=== PATIENT | female | born 1955 | race Caucasian/White ===

== ENCOUNTER 2022-01-22 20:57 | Inpatient (IN) ==
[2022-01-22] MEDS ORDERED: SODIUM CHLORIDE 0.9% 1,000 ML IV STA (21:25)
[2022-01-22] MEDS ORDERED: ONDANSETRON 4 MG/2 ML VIAL IV ONE (21:25)
[2022-01-22] MEDS ORDERED: HYDROmorphone 1 MG/1 ML SYRINGE IV STA (21:25)
[2022-01-22 21:44] LABS: Basophils # 0.1 10*3/uL (0.0-0.2); Basophils % 0.4 % (0.0-0.8); Eosinophils # 0.5 10*3/uL (0.0-0.87); Eosinophils % 2.2 % (0.00-10.9); Hematocrit 41.2 VOL% (35.7-47.0); Hemoglobin 13.7 GM/DL (12.0-16.0); Immature Granulocytes % 0.5 %; Immature Granulocytes Absolute 0.12 #; Lymphocytes # 6.3 10*3/uL (1.4-4.0); Lymphocytes % 28.1 % (21.3-54.2); Mean Corpuscular HGB Conc 33.3 GM/DL (32-36); Mean Platelet Volume 9.8 FL (9.6-12.0); Monocytes # 1.5 10*3/uL (0.11-0.8); Monocytes % 6.8 % (1.7-12.7); Platelet Count 321 T/CUMM (130-400); Red Blood Count 4.48 MC/CUMM (3.8-5.5); Red Cell Distribution Width 13.8 % (9.3-17.3); White Blood Count 22.5 T/CUMM (4-12)
[2022-01-22 21:53] LABS: INR 2.3; PT Patient Result 24.2 SECS (10.1-12.1)
[2022-01-22 22:05] LABS: Albumin 3.5 G/DL (3.4-5.0); Bilirubin,Total 0.4 MG/DL (0.20-1.00); Calcium 9.4 MG/DL (8.5-10.1); Osmolality,Calculated 282.4 MOS/KG (273-304); Potassium 3.5 MMOL/L (3.5-5.1); Total Protein 7.2 G/DL (6.4-8.2)
[2022-01-22 22:51] LABS: Eosinophils 3 % (0-10); Lymphocytes 26 % (20-55); Total Cells Counted 100
[2022-01-22 22:52] LABS: Platelet Estimate Normal; Smudge Cells Few
[2022-01-23] MEDS ORDERED: ONDANSETRON 4 MG/2 ML VIAL IV PRN (00:01)
[2022-01-23] MEDS ORDERED: PHYTONADIONE INJ 10 MG in SODIUM CHLORIDE 0.9% 50 ML IV STA (00:01)
[2022-01-23] MEDS ORDERED: MORPHINE 2 MG/1 ML SYRINGE IV PRN (00:01)
[2022-01-23] MEDS ORDERED: PIPERACILLIN/TAZOBACTAM 3,375 MG in SODIUM CHLORIDE 0.9% 100 ML IV STA (00:01)
[2022-01-23] MEDS ORDERED: ACETAMINOPHEN 325 MG TABLET PO PRN (00:01)
[2022-01-23 00:04] LABS: Bilirubin,Urine Negative (Negative); Blood, Urine Large mg/dL (Negative); Calcium Oxalate Crystals,Urine Occasional /HPF (Few); Glucose,Urine (UA) Negative (Negative); Ketones,Urine Trace mg/dL (Negative); Mucus,Urine Many /LPF (Occasional); Nitrite,Urine Negative (Negative); Protein,Urine 30 mg/dL (Negative); RBC,Urine 375 /HPF (0-4); Squamous Epithelial Cell,Urine Occasional /HPF (0-10); Urine Appearance Clear (Clear); Urine Color Yellow (Yellow); Urine Urobilinogen 0.2 eU/dL (<2.0); Urine pH 5.5 (4.5-8.0)
[2022-01-23] MEDS: LACTATED RINGERS 1,000 ML IV SCH ×3 (05:29→16:59)
[2022-01-23 06:42] LABS: Basophils # 0.1 10*3/uL (0.0-0.2); Basophils % 0.4 % (0.0-0.8); Eosinophils # 0.2 10*3/uL (0.0-0.87); Eosinophils % 1.1 % (0.00-10.9); Hematocrit 37.8 VOL% (35.7-47.0); Hemoglobin 12.3 GM/DL (12.0-16.0); Immature Granulocytes % 0.6 %; Immature Granulocytes Absolute 0.12 #; Lymphocytes # 4.2 10*3/uL (1.4-4.0); Lymphocytes % 22.2 % (21.3-54.2); Mean Corpuscular HGB Conc 32.5 GM/DL (32-36); Mean Corpuscular Volume 94.5 FL (87-102); Mean Platelet Volume 10.2 FL (9.6-12.0); Monocytes # 1.4 10*3/uL (0.11-0.8); Monocytes % 7.2 % (1.7-12.7); Neutrophils % 68.5 % (38.7-73.9); Platelet Count 284 T/CUMM (130-400); Red Cell Distribution Width 14.1 % (9.3-17.3); White Blood Count 18.8 T/CUMM (4-12)
[2022-01-23 07:10] LABS: Albumin 3.1 G/DL (3.4-5.0); Bilirubin,Total 0.6 MG/DL (0.20-1.00); Calcium 8.5 MG/DL (8.5-10.1); Osmolality,Calculated 286.1 MOS/KG (273-304); Potassium 3.8 MMOL/L (3.5-5.1); Total Protein 6.4 G/DL (6.4-8.2)
[2022-01-23] MEDS: PIPERACILLIN/TAZOBACTAM 3,375 MG in SODIUM CHLORIDE 0.9% 100 ML IV SCH ×2 (09:52→16:59)
[2022-01-23] MEDS: PANTOPRAZOLE 40 MG TABLET PO SCH (09:53)
[2022-01-23] MEDS ORDERED: GLUCAGON 1 MG VIAL IM PRN (11:27)
[2022-01-23] MEDS ORDERED: DEXTROSE 10% 250 ML BAG IV PRN (11:27)
[2022-01-23] MEDS: INSULIN LISPRO 100 UNIT/ML SUBCUT SCH ×3 (11:53→20:49)
[2022-01-23 12:33] LABS: INR 1.2; PT Patient Result 13.5 SECS (10.1-12.1)
[2022-01-23] MEDS: VENLAFAXINE XR 75 MG CAPSULE PO SCH (20:48)
[2022-01-23] MEDS: CHOLECALCIFEROL 5,000 UNIT TABLET PO SCH (20:49)
[2022-01-23] MEDS: CYANOCOBALAMIN 500 MCG TABLET PO SCH (20:49)
[2022-01-23] MEDS: SIMVASTATIN 10 MG TABLET PO SCH (20:49)
[2022-01-23] MEDS: ZINC GLUCONATE 50 MG TABLET PO SCH (20:49)
[2022-01-24] MEDS: LACTATED RINGERS 1,000 ML IV SCH ×3 (01:08→18:02)
[2022-01-24] MEDS: PIPERACILLIN/TAZOBACTAM 3,375 MG in SODIUM CHLORIDE 0.9% 100 ML IV SCH ×3 (01:08→18:09)
[2022-01-24 05:23] LABS: INR 1.1; PT Patient Result 11.8 SECS (10.1-12.1)
[2022-01-24 06:54] LABS: Basophils % 0.3 % (0.0-0.8); Eosinophils # 0.4 10*3/uL (0.0-0.87); Eosinophils % 2.7 % (0.00-10.9); Hematocrit 32.1 VOL% (35.7-47.0); Hemoglobin 10.5 GM/DL (12.0-16.0); Immature Granulocytes % 0.3 %; Immature Granulocytes Absolute 0.04 #; Lymphocytes # 3.1 10*3/uL (1.4-4.0); Lymphocytes % 22.3 % (21.3-54.2); Mean Corpuscular HGB Conc 32.7 GM/DL (32-36); Mean Corpuscular Volume 95.8 FL (87-102); Mean Platelet Volume 10.5 FL (9.6-12.0); Monocytes # 1.2 10*3/uL (0.11-0.8); Monocytes % 8.6 % (1.7-12.7); Neutrophils % 65.8 % (38.7-73.9); Platelet Count 222 T/CUMM (130-400); Red Blood Count 3.35 MC/CUMM (3.8-5.5); Red Cell Distribution Width 13.9 % (9.3-17.3); White Blood Count 13.8 T/CUMM (4-12)
[2022-01-24 07:08] LABS: Albumin 2.8 G/DL (3.4-5.0); Bilirubin,Total 0.5 MG/DL (0.20-1.00); Calcium 8.2 MG/DL (8.5-10.1); Osmolality,Calculated 279.4 MOS/KG (273-304); Total Protein 5.5 G/DL (6.4-8.2)
[2022-01-24] MEDS: PANTOPRAZOLE 40 MG TABLET PO SCH (08:37)
[2022-01-24] MEDS: INSULIN LISPRO 100 UNIT/ML SUBCUT SCH ×4 (08:53→21:33)
[2022-01-24 11:01] LABS: Hematocrit 31.3 VOL% (35.7-47.0)
[2022-01-24] MEDS ORDERED: LIDOCAINE 2% 5 ML VIAL ONE ×2 (14:42→15:45)
[2022-01-24] MEDS ORDERED: ONDANSETRON 4 MG/2 ML VIAL ONE ×2 (14:42→15:45)
[2022-01-24] MEDS ORDERED: propofoL 200 MG/20 ML VIAL IV ONE ×2 (14:42→15:45)
[2022-01-24] MEDS ORDERED: NEOMYCIN/POLYMYXIN IRRIG SOLN 1 ML AMP BLADDERIRR ONE (15:29)
[2022-01-24] MEDS ORDERED: fentaNYL 100 MCG/2 ML VIAL ONE (15:36)
[2022-01-24] MEDS ORDERED: SUCCINYLCHOLINE 200 MG/10 ML VIAL ONE (15:37)
[2022-01-24] MEDS ORDERED: PHENYLEPHRINE 1 MG/10 ML SYRINGE IV ONE (15:53)
[2022-01-24] MEDS ORDERED: DESFLURANE 1 UNIT/15 MINUTE INH ONE (15:53)
[2022-01-24] MEDS ORDERED: LACTATED RINGERS 1,000 ML IV ONE (15:59)
[2022-01-24] MEDS ORDERED: ALBUTEROL/IPRATROPIUM 3 ML NEB RESP TX ONE (16:46)
[2022-01-24] MEDS ORDERED: MORPHINE 10 MG/1 ML VIAL ONE (17:13)
[2022-01-24] MEDS: MORPHINE 2 MG/1 ML SYRINGE IV PRN (17:15)
[2022-01-24 17:51] LABS: Hematocrit 32.1 VOL% (35.7-47.0); Hemoglobin 10.2 GM/DL (12.0-16.0)
[2022-01-24] MEDS: VENLAFAXINE XR 75 MG CAPSULE PO SCH (21:31)
[2022-01-24] MEDS: ZINC GLUCONATE 50 MG TABLET PO SCH (21:32)
[2022-01-24] MEDS: SIMVASTATIN 10 MG TABLET PO SCH (21:32)
[2022-01-24] MEDS: CHOLECALCIFEROL 5,000 UNIT TABLET PO SCH (21:32)
[2022-01-24] MEDS: CYANOCOBALAMIN 500 MCG TABLET PO SCH (21:32)
[2022-01-24 23:09] LABS: Hematocrit 30.1 VOL% (35.7-47.0); Hemoglobin 9.8 GM/DL (12.0-16.0)
[2022-01-25] MEDS: PIPERACILLIN/TAZOBACTAM 3,375 MG in SODIUM CHLORIDE 0.9% 100 ML IV SCH ×3 (00:05→16:12)
[2022-01-25] MEDS: LACTATED RINGERS 1,000 ML IV SCH ×3 (01:00→18:05)
[2022-01-25] MEDS: MORPHINE 2 MG/1 ML SYRINGE IV PRN (03:06)
[2022-01-25 05:30] LABS: Basophils % 0.2 % (0.0-0.8); Eosinophils # 0.3 10*3/uL (0.0-0.87); Eosinophils % 2.3 % (0.00-10.9); Hematocrit 30.2 VOL% (35.7-47.0); Hemoglobin 9.7 GM/DL (12.0-16.0); Immature Granulocytes % 0.4 %; Immature Granulocytes Absolute 0.05 #; Lymphocytes # 2.4 10*3/uL (1.4-4.0); Lymphocytes % 16.6 % (21.3-54.2); Mean Corpuscular HGB Conc 32.1 GM/DL (32-36); Mean Corpuscular Volume 96.2 FL (87-102); Monocytes # 1.2 10*3/uL (0.11-0.8); Monocytes % 8.4 % (1.7-12.7); Neutrophils % 72.1 % (38.7-73.9); Platelet Count 215 T/CUMM (130-400); Red Blood Count 3.14 MC/CUMM (3.8-5.5); Red Cell Distribution Width 13.6 % (9.3-17.3); White Blood Count 14.2 T/CUMM (4-12)
[2022-01-25 06:19] LABS: Calcium 8.4 MG/DL (8.5-10.1); Potassium 3.4 MMOL/L (3.5-5.1)
[2022-01-25 06:23] LABS: Osmolality,Calculated 274.7 MOS/KG (273-304)
[2022-01-25] MEDS: INSULIN LISPRO 100 UNIT/ML SUBCUT SCH ×4 (08:18→21:44)
[2022-01-25] MEDS: PANTOPRAZOLE 40 MG TABLET PO SCH (09:27)
[2022-01-25] MEDS: VENLAFAXINE XR 75 MG CAPSULE PO SCH (21:43)
[2022-01-25] MEDS: ZINC GLUCONATE 50 MG TABLET PO SCH (21:44)
[2022-01-25] MEDS: CYANOCOBALAMIN 500 MCG TABLET PO SCH (21:44)
[2022-01-25] MEDS: SIMVASTATIN 10 MG TABLET PO SCH (21:44)
[2022-01-25] MEDS: CHOLECALCIFEROL 5,000 UNIT TABLET PO SCH (21:44)
[2022-01-26] MEDS: PIPERACILLIN/TAZOBACTAM 3,375 MG in SODIUM CHLORIDE 0.9% 100 ML IV SCH ×3 (00:12→16:34)
[2022-01-26] MEDS: LACTATED RINGERS 1,000 ML IV SCH ×6 (02:58→21:26)
[2022-01-26 05:15] LABS: Basophils % 0.3 % (0.0-0.8); Eosinophils # 0.4 10*3/uL (0.0-0.87); Eosinophils % 3.8 % (0.00-10.9); Immature Granulocytes % 0.3 %; Immature Granulocytes Absolute 0.03 #; Lymphocytes # 2.6 10*3/uL (1.4-4.0); Lymphocytes % 24.1 % (21.3-54.2); Mean Corpuscular HGB Conc 32.1 GM/DL (32-36); Mean Corpuscular Volume 95.9 FL (87-102); Mean Platelet Volume 10.1 FL (9.6-12.0); Monocytes # 1.1 10*3/uL (0.11-0.8); Neutrophils % 61.5 % (38.7-73.9); Platelet Count 213 T/CUMM (130-400); Red Blood Count 2.92 MC/CUMM (3.8-5.5); Red Cell Distribution Width 13.6 % (9.3-17.3); White Blood Count 10.9 T/CUMM (4-12)
[2022-01-26 05:31] LABS: Calcium 8.1 MG/DL (8.5-10.1)
[2022-01-26 05:35] LABS: Osmolality,Calculated 276.5 MOS/KG (273-304); Potassium 3.5 MMOL/L (3.5-5.1)
[2022-01-26] MEDS: PANTOPRAZOLE 40 MG TABLET PO SCH (09:03)
[2022-01-26] MEDS: INSULIN LISPRO 100 UNIT/ML SUBCUT SCH ×4 (09:58→21:24)
[2022-01-26] MEDS ORDERED: MAGNESIUM SULF RIDER 2 GM/50 ML PREMIX IV ONE (10:50)
[2022-01-26] MEDS ORDERED: cefTRIAXone 1,000 MG in SODIUM CHLORIDE 0.9% 100 ML IV ONE (14:06)
[2022-01-26] MEDS: POTASSIUM CHLORIDE 20 MEQ TABLET PO PRN ×2 (15:27→16:34)
[2022-01-26] MEDS: ALBUTEROL/IPRATROPIUM 3 ML NEB RESP TX SCH (19:10)
[2022-01-26] MEDS: SIMVASTATIN 10 MG TABLET PO SCH (21:25)
[2022-01-26] MEDS: CYANOCOBALAMIN 500 MCG TABLET PO SCH (21:25)
[2022-01-26] MEDS: VENLAFAXINE XR 75 MG CAPSULE PO SCH (21:25)
[2022-01-26] MEDS: ZINC GLUCONATE 50 MG TABLET PO SCH (21:25)
[2022-01-26] MEDS: CHOLECALCIFEROL 5,000 UNIT TABLET PO SCH (21:25)
[2022-01-26] MEDS ORDERED: BENZONATATE 100 MG CAPSULE PO PRN (22:45)
[2022-01-26] MEDS ORDERED: guaiFENesin/CODEINE 5 ML LIQUID PO PRN (22:48)
[2022-01-27] MEDS: ALBUTEROL/IPRATROPIUM 3 ML NEB RESP TX SCH ×5 (00:40→19:20)
[2022-01-27] MEDS: PIPERACILLIN/TAZOBACTAM 3,375 MG in SODIUM CHLORIDE 0.9% 100 ML IV SCH ×2 (00:46→09:10)
[2022-01-27] MEDS: LACTATED RINGERS 1,000 ML IV SCH ×3 (05:33→17:46)
[2022-01-27 06:00] LABS: Basophils % 0.3 % (0.0-0.8); Eosinophils # 0.4 10*3/uL (0.0-0.87); Eosinophils % 3.7 % (0.00-10.9); Hemoglobin 9.2 GM/DL (12.0-16.0); Immature Granulocytes % 0.4 %; Immature Granulocytes Absolute 0.04 #; Lymphocytes # 2.2 10*3/uL (1.4-4.0); Lymphocytes % 21.4 % (21.3-54.2); Mean Corpuscular HGB Conc 32.9 GM/DL (32-36); Mean Corpuscular Volume 95.6 FL (87-102); Monocytes % 9.6 % (1.7-12.7); Neutrophils % 64.6 % (38.7-73.9); Platelet Count 242 T/CUMM (130-400); Red Blood Count 2.93 MC/CUMM (3.8-5.5); Red Cell Distribution Width 13.5 % (9.3-17.3); White Blood Count 10.3 T/CUMM (4-12)
[2022-01-27 06:12] LABS: Calcium 8.3 MG/DL (8.5-10.1); Osmolality,Calculated 280.1 MOS/KG (273-304); Potassium 3.6 MMOL/L (3.5-5.1)
[2022-01-27] MEDS: INSULIN LISPRO 100 UNIT/ML SUBCUT SCH ×4 (07:41→21:23)
[2022-01-27] MEDS ORDERED: cefTRIAXone 1,000 MG in SODIUM CHLORIDE 0.9% 100 ML IV ONE (08:00)
[2022-01-27] MEDS: PANTOPRAZOLE 40 MG TABLET PO SCH (09:09)
[2022-01-27] MEDS ORDERED: LACTATED RINGERS 1,000 ML IV SCH (12:00)
[2022-01-27] MEDS ORDERED: ONDANSETRON 4 MG/2 ML VIAL ONE (12:02)
[2022-01-27] MEDS ORDERED: LIDOCAINE 2% 5 ML VIAL ONE (12:02)
[2022-01-27] MEDS ORDERED: propofoL 200 MG/20 ML VIAL IV ONE (12:02)
[2022-01-27] MEDS ORDERED: SEVOFLURANE 1 UNIT/15 MINUTE INH ONE (12:02)
[2022-01-27] MEDS ORDERED: MIDAZOLAM 2 MG/2 ML VIAL ONE (12:03)
[2022-01-27] MEDS ORDERED: fentaNYL 100 MCG/2 ML VIAL ONE (12:03)
[2022-01-27] MEDS ORDERED: GENTAMICIN 80 MG/2 ML VIAL ONE (12:11)
[2022-01-27] MEDS ORDERED: NEOMYCIN/POLYMYXIN IRRIG SOLN 1 ML AMP BLADDERIRR ONE (12:16)
[2022-01-27] MEDS ORDERED: PHENYLEPHRINE 1 MG/10 ML SYRINGE IV ONE (12:30)
[2022-01-27] MEDS ORDERED: ONDANSETRON 4 MG/2 ML VIAL IV PRN (13:53)
[2022-01-27] MEDS ORDERED: HYDROmorphone 1 MG/1 ML SYRINGE ONE (13:54)
[2022-01-27] MEDS: HYDROmorphone 1 MG/1 ML SYRINGE IV PRN ×3 (13:58→14:23)
[2022-01-27] MEDS ORDERED: LABETALOL 20 MG/4 ML SYRINGE IV ONE (14:08)
[2022-01-27] MEDS: VENLAFAXINE XR 75 MG CAPSULE PO SCH (21:22)
[2022-01-27] MEDS: CHOLECALCIFEROL 5,000 UNIT TABLET PO SCH (21:23)
[2022-01-27] MEDS: ZINC GLUCONATE 50 MG TABLET PO SCH (21:23)
[2022-01-27] MEDS: SIMVASTATIN 10 MG TABLET PO SCH (21:23)
[2022-01-27] MEDS: CYANOCOBALAMIN 500 MCG TABLET PO SCH (21:23)
[2022-01-28] MEDS: ALBUTEROL/IPRATROPIUM 3 ML NEB RESP TX SCH ×4 (00:25→19:45)
[2022-01-28] MEDS: LACTATED RINGERS 1,000 ML IV SCH ×3 (00:37→18:29)
[2022-01-28] MEDS: PANTOPRAZOLE 40 MG TABLET PO SCH (08:01)
[2022-01-28] MEDS: INSULIN LISPRO 100 UNIT/ML SUBCUT SCH ×4 (08:02→20:53)
[2022-01-28] MEDS: ZINC GLUCONATE 50 MG TABLET PO SCH (20:52)
[2022-01-28] MEDS: VENLAFAXINE XR 75 MG CAPSULE PO SCH (20:52)
[2022-01-28] MEDS: CYANOCOBALAMIN 500 MCG TABLET PO SCH (20:52)
[2022-01-28] MEDS: CHOLECALCIFEROL 5,000 UNIT TABLET PO SCH (20:53)
[2022-01-28] MEDS: SIMVASTATIN 10 MG TABLET PO SCH (20:53)
[2022-01-29] MEDS: LACTATED RINGERS 1,000 ML IV SCH (00:26)
[2022-01-29] MEDS: ALBUTEROL/IPRATROPIUM 3 ML NEB RESP TX SCH ×2 (00:54→07:21)
[2022-01-29] MEDS: INSULIN LISPRO 100 UNIT/ML SUBCUT SCH (07:16)
[2022-01-29] MEDS: PANTOPRAZOLE 40 MG TABLET PO SCH (08:50)
[2022-01-29] MEDS ORDERED: APIXABAN 5 MG TABLET PO SCH (09:00)
[2022-01-29 09:03] VITALS: BP 109/64
[2022-02-02 12:49] LABS: Stone Analysis Interpretation SEE COMMENTS
== END 2022-01-29 11:41 | disposition home or self-care (01) | DRG 988 ==
LOC: N.ED 20:57 → N.EDINP 01-23 00:01 → SUATTDRO 01-23 00:01 → N.3E 01-23 00:45
PROVIDERS: ADMIT Internal Medicine; ATTEND Family Medicine